=== PATIENT | female | born 1965 | race Two or more races ===

== ENCOUNTER → 2017-03-17 | Day surgery (SDC) | payer OTHER ==
[~2017-03-17] MED LIST: ACETAMINOPHEN 650 MG/20.3 ML UDCUP PO ONE; MAG HYDROX/AL HYDROX/SIMETH 30 ML UDCUP PO ONE; MIDAZOLAM 2 MG/2 ML VIAL ONE; NS 1,000 ML IV ONE; PANTOPRAZOLE SODIUM 40 MG in NS 100 ML IV ONE; PROPOFOL 200 MG/20 ML VIAL ONE; fentaNYL 100 MCG/2 ML INJ ONE
[2017-03-17 13:13] VITALS: TEMP 98.2; O2SAT 95
--- NOTE | 2017-03-17 13:33 | EDPHY ---
H & P Time Seen by Provider: 03/17/17 13:22 HPI/ROS: CHIEF COMPLAINT: Vomiting, esophageal discomfort. HISTORY OF PRESENT ILLNESS: The patient is a 51-year-old female who presents vomiting and esophageal pain that started 5 days ago. The patient swallowed 1/2 of a garlic clove on Wednesday, 5 days ago. Since then, she's had persistent vomiting and inability to eat/drink. She complains of a discomfort in her esophagus and thought the garlic clove may be stuck. She was seen at [facility] on 03/13/17; CT abd/pelvis unremarkable. Rx for Zofran without relief. She continues to vomit after food and fluids. She states she is only able to keep down small amounts of fluids at a time. The patient has a history of gastric bypass surgery in 2004 with no reported issues since then. REVIEW OF SYSTEMS: A comprehensive 10 point review of systems is otherwise negative aside from elements mentioned in the history of present illness. Past Medical/Surgical History: Gastric bypass 2004. 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 Smoking Status: Former smoker Physical Exam: General Appearance: Alert, pleasant Eyes: Pupils equal and round, no conjunctival pallor or injection ENT, Mouth: Mucous membranes moist Neck: Normal inspection Respiratory: Lungs are clear to auscultation Cardiovascular: Regular rate and rhythm Gastrointestinal: Abdomen is soft and non-tender Neurological: A&O, nonfocal, normal gait Skin: Warm and dry, no rash Extremities: Nontender, no pedal edema Psychiatric: Mood and affect normal Constitutional: Initial Vital Signs Temperature (C) 36.8 C 03/17/17 13:11 Heart Rate 68 03/17/17 13:11 Respiratory Rate 18 03/17/17 13:11 Blood Pressure 120/75 03/17/17 13:11 O2 Sat (%) 95 03/17/17 13:11 O2 Delivery Mode Room Air Allergies/Adverse Reactions: No Known Allergies Allergy (Verified 03/17/17 13:10) Home Medications: Medication Instructions Recorded Zofran 03/17/17 Medical Decision Making ED Course/Re-evaluation: The patient presents with 5 days of vomiting and esophageal discomfort. Concerning for esophageal obstruction or gastric outlet obstruction. I reviewed the CT abd/pelv with IV contrast from [facility] done 03/13/17. CT was unremarkable. Patient is very nauseous and in significant amount of pain. IV was established, patient received IV fluids. Plan to consult GI. Plan to check liver function panel, Lipase, and BMP. 2:00 p.m.: I consulted Dr. Estrella, Sociology Adjunct Instructor. He is in the ED and will assess the patient. Plan is to take the patient to the operating room for EGD. Differential Diagnosis: Differential diagnosis includes though it is not limited to appendicitis, cholecystitis, diverticulitis, pyelonephritis, bowel perforation, small bowel obstruction. - Data Points Laboratory Results: Laboratory Results 03/17/17 13:35 03/17/17 13:35 Medications Given: Discontinued Medications Sodium Chloride (Ns) 1,000 mls @ 0 mls/hr IV ONCE ONE PRN Reason: Wide Open Stop: 03/17/17 13:49 Last Admin: 03/17/17 13:30 Dose: 1,000 mls Departure - Departure Disposition: To OP Cath/Surgery Clinical Impression: Esophageal obstruction due to food impaction Condition: Fair Referrals: ESEQUIEL LANDRY [Other] - As per Instructions Report Scribed for: Do Leigh Report Scribed by: Joyce Jovel Date of Report: 03/17/17 Time of Report: 13:33 Physician Review and Approval Statement: 03/17/17 13:33 Portions of this note were transcribed by a medical billing and coding specialist. I personally performed the history, physical exam, and medical decision-making; and confirmed the accuracy of the information in the transcribed note.
[2017-03-17 13:53] LABS: % IMMATURE GRANULYOCYTES 0.2 % (0.0-1.1); ABSOLUTE IMMATURE GRANULOCYTES 0.01 10^3/uL (0.00-0.10); ADD DIFF? NO; ADD MORPH? NO; ADD SCAN? NO; ATYPICAL LYMPHOCYTE FLAG 20 (0-99); FRAGMENT RBC FLAG 0 (0-99); HEMATOCRIT 43.2 % (38.0-47.0); HEMOGLOBIN 14.6 g/dL (12.6-16.3); LEFT SHIFT FLG 0 (0-99); LIPEMIA HEMOLYSIS FLAG 90 (0-99); MEAN CELL HEMOGLOBIN 30.5 pg (27.9-34.1); MEAN CELL HEMOGLOBIN CONCENTR. 33.8 g/dL (32.4-36.7); MEAN CELL VOLUME 90.4 fL (81.5-99.8); MEAN PLATELET VOLUME 10.3 fL (8.7-11.7); PLATELET CLUMPS FLAG 0 (0-99); PLATELET COUNT 221 10^3/uL (150-400); RED BLOOD CELL COUNT 4.78 10^6/uL (4.18-5.33); RED CELL DISTRIBUTION WIDTH 12.6 % (11.5-15.2)
[2017-03-17 13:59] LABS: ALANINE AMINOTRANSFERASE 40 IU/L (9-52); ALBUMIN 4.3 g/dL (3.5-5.0); ALKALINE PHOSPHATASE 117 IU/L (38-126); ANION GAP 10 mEq/L (8-16); ASPARTATE AMINOTRANSFERASE 39 IU/L (14-46); BILIRUBIN-CONJUGATED 0.5 mg/dL (0.0-0.5); BILIRUBIN-UNCONJUGATED 0.5 mg/dL (0.0-1.1); CALCIUM 9.4 mg/dL (8.5-10.4); CARBON DIOXIDE 24 mEq/l (22-31); CHLORIDE 106 mEq/L (97-110); CREATININE 0.6 mg/dL (0.6-1.0); GLOMERULAR FILTRATION RATE > 60; GLUCOSE 89 mg/dL (70-100); POTASSIUM 3.6 mEq/L (3.5-5.2); SODIUM 140 mEq/L (134-144); TOTAL PROTEIN 7.2 g/dL (6.3-8.2)
[2017-03-17 15:04] VITALS: BP 125/70; PULSE 74; RESP 16
--- NOTE | 2017-03-17 15:59 | GPN ---
[f rep st] PROCEDURE NOTE PROCEDURE: Gastroscopy with food disimpaction and balloon dilation. INDICATIONS: Patient is a 51-year-old female who is status post gastric bypass surgery. Five days ago she swallowed a whole clove of garlic and felt it get stuck in her esophagus. She was seen in [facility] emergency room at [place] where she had imaging done but no definitive treatment. She has not b een able to swallow anything within the last 4 days. Gastroscopy is being performed to evaluate and treat. PROCEDURE: After proper consent was obtained. Patient was intubated and placed in the left lateral decubitus position. Video gastroscope was introduced through the mouth and down the esophagus, in which was seen a large clove of garlic. However, it was not actively obstructing anything. There was however a Schatzki' s ring noted approximately 9 mm in diameter. The ring was passed, and then the gastric remnant was entered. This appeared normal as did the affe rent and efferent limb. A 20 mm balloon was bridged across the ring and dilated maximally with good superficial fracturing. The food debris was retrieved with Heaton net. At this point, instrument was removed. Patient tolerated the procedure well and was returned to [facility] in stable condition. RECOMMENDATIONS: 1. Patient will be on a liquid diet today, advance to solids tomorrow. 2. She will be on a month of acid suppressants, preferably [id number] Prilosec 20 mg daily. 3. If symptoms persist, this procedure can be repeated. Copy requested to: Dr. Alyx Guerin /[id number]/[facility]
== END | disposition home or self-care (01) ==
LOC: FSGY 15:04
PROVIDERS: ATTEND Internal Medicine Gastroenterology
PROC: 0D758ZZ Dilation of Esophagus, Via Natural or Artificial Opening Endoscopic (ICD-10-PCS; principal; 2017-03-17 14:55)
PROC: 0DC58ZZ Extirpation of Matter from Esophagus, Via Natural or Artificial Opening Endoscopic (ICD-10-PCS; principal; 2017-03-17 14:55)
DX: T18.108A Unspecified foreign body in esophagus causing other injury, initial encounter (principal); K22.2 Esophageal obstruction
CPT/HCPCS: 43215; 43220; 96360; 99285; C1726; 82947-QW; J2250; J2704; J3010

== ENCOUNTER → 2017-06-02 | Outpatient (CLI) | payer OTHER | LOC: FIMAGING 13:17 | DX: Z12.31 Encounter for screening mammogram for malignant neoplasm of breast (principal) | CPT/HCPCS: G0202 ==

== ENCOUNTER → 2017-08-04 | Outpatient (CLI) | payer OTHER | LOC: FIMAGING 12:55 | DX: N63.11 Unspecified lump in the right breast, upper outer quadrant (principal) ==